=== PATIENT | female | born 1985 | race Caucasian/White ===

== ENCOUNTER → 2023-07-24 | Emergency (ER) | payer SELFPAY ==
[~2023-07-24] MED LIST: FAMOTIDINE 20 MG/2 ML VIAL IV ONE; FOLIC ACID 5 MG/ML VIAL ONE; LORazepam 2 MG/ML VIAL ONE; MULTIVITAMINS 10 ML VIAL (INJ) IV ONE; NA CHLORIDE 0.9% 2,000 ML ONE; ONDANSETRON 4 MG/2 ML VIAL ONE; THIAMINE 200 MG/2 ML INJ ONE
[2023-07-24 04:30] LABS: Absolute Basophils 0.1 K/uL (0-0.5); Absolute Lymphocytes (CBC) 2.2 K/uL (0.7-4.9); Absolute Monocytes 0.8 K/uL (0.1-1.3); Absolute Neutrophil 6.4 K/uL (1.8-8.0); Basophils % 0.5 % (0-1.3); Hematocrit 46.8 % (36.0-45.0); Hemoglobin 15.9 g/dL (12.0-15.0); Lymphocytes % 23.3 % (15.3-44.8); MCH 27.7 pg (27.0-35.0); MCHC 33.9 g/dL (32.0-36.0); MCV 81.8 fL (80-100); MPV 8.7 fL (7.6-11.3); Monocytes % 8.4 % (3.3-12.3); Neutrophils % 67.8 % (41.7-73.7); Platelets 447 thou/uL (152-406); RBC Red Blood Cell Count 5.73 M/uL (3.86-4.86); Red Cell Distribution Width 16.9 % (12.1-15.2)
[2023-07-24 04:47] LABS: Albumin/Globulin Ratio 0.8 (1.1-1.8); Anion Gap 19.2 mEq/L (5.0-15.0); Bilirubin Total 0.9 mg/dL (0.2-1.0); Globulin 4.8 g/dL (2.3-3.5); Potassium 3.2 mEq/L (3.5-5.1); Protein, Total 8.8 g/dL (6.4-8.2)
[2023-07-24 04:57] LABS: Specific Gravity 1.022 (1.005-1.030)
[2023-07-24 04:58] LABS: Specific Gravity 1.022 (1.005-1.030); Sqamous Epithelial <5 /HPF (None Seen); Urine Bacteria None Seen /HPF (<20); Urine Bilirubin NEGATIVE (Negative); Urine Blood 3+ (OVER) (Negative); Urine Clarity Extremely Turbid (Clear); Urine Color Yellow (Yellow); Urine Culture Reflex Order NOT NEEDED; Urine Glucose NEGATIVE (Negative); Urine Ketones 1+ (Negative); Urine Microscopic Reflex YN ORDER UMIC; Urine Mucus 4+ /HPF (None Seen); Urine Nitrite NEGATIVE (Negative); Urine Protein 1+ (Negative); Urine Urobilinogen Normal (Normal); Urine WBC <5 /HPF (<5)
[2023-07-24 05:18] LABS: Barbiturates NEGATIVE (NEGATIVE); Benzodiazepines NEGATIVE (NEGATIVE); Cocaine NEGATIVE (NEGATIVE); METHAMPHETAM NEGATIVE (NEGATIVE); Methadone NEGATIVE (NEGATIVE); Opiates POSITIVE (NEGATIVE); Phencyclidine NEGATIVE (NEGATIVE); THC Cannibis NEGATIVE (NEGATIVE)
--- NOTE | 2023-07-24 05:54 | EDPHYS ---
Physician Documentation [facility] Name: Elenita Jefferson Age: 38 yrs Sex: Female : 1985 Arrival Date: 07/24/2023 Time: 03:46 Bed 11 Private MD: ED Physician Ez Kohler HPI: 07/23 04:04 This 38 yrs old Female presents to ER via Unassigned with complaints of sp4 Nausea/Vomiting. 04:04 38-year-old female with history of alcohol abuse and alcoholism presents with sp4 persistent vomiting for the last 3 days. Patient states she has been drinking heavily last alcoholic drink was just prior to arrival. Patient reports anxiety numbness tingling to bilateral hands. Reports that she is trying to get into a rehab at this time, . 05:50 Patient reports binging on alcohol heavily in the last several days drinking 99 % of sp4 alcohol which is flavored . . History of prior alcoholism currently in the relapse.. 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 Last tetanus immunization: > 10 years ago Hepatitis A vaccine is up to date. - Family history:: not pertinent. - Social history:: Smoking status: Reported history of juuling and/or vaping. Patient uses alcohol, on a daily basis. Patient/guardian denies using street drugs. ROS: 04:04 Constitutional: Negative for fever, chills, and weight loss, sp4 04:04 Constitutional: Negative for fever, chills, and weight loss, positive vomiting positive intoxication positive anxiety. Positive abdominal discomfort 04:04 All other systems are negative, Exam: 04:04 Constitutional: This is a well developed, well nourished patient who is awake, alert, sp4 and moderate distress. There is intoxication that is moderate. unsteady gait Head/Face: Normocephalic, atraumatic. Eyes: Pupils equal round and reactive to light, extra-ocular motions intact. Lids and lashes normal. Conjunctiva and sclera are not injected. Cornea within normal limits. Periorbital areas with no swelling, redness, or edema. ENT: Nares patent. No nasal discharge, no septal abnormalities noted. Tympanic membranes are normal and external auditory canals are clear. Oropharynx with no redness, swelling, or masses, exudates, or evidence of obstruction, uvula midline. Mucous membranes moist. Neck: Trachea midline, no thyromegaly or masses palpated, and no cervical lymphadenopathy. Supple, full range of motion without nuchal rigidity, or vertebral point tenderness. Chest/axilla: Normal chest wall appearance and motion. Nontender with no deformity. No lesions are appreciated. Cardiovascular: Regular rate and rhythm with a normal S1 and S2. No gallops, murmurs, or rubs. Normal PMI, no JVD. No pulse deficits. Respiratory: Lungs have equal breath sounds bilaterally, clear to auscultation and percussion. No rales, rhonchi or wheezes noted. No increased work of breathing, no retractions or nasal flaring. Abdomen/GI: Soft, with normal bowel sounds. No distension or tympany. No guarding or rebound. No evidence of tenderness throughout. Back: No spinal tenderness. No costovertebral tenderness. Skin: Warm, dry with normal turgor. Normal color with no rashes, no lesions, and no evidence of cellulitis. MS/ Extremity: Pulses equal, no cyanosis. Neurovascular intact. Full, normal range of motion. Neuro: Awake and alert, GCS 15, oriented to person, place, time, and situation. Cranial nerves II-XII grossly intact. Motor strength 5/5 in all extremities. Sensory grossly intact. Psych: Awake, alert, with orientation to person, place and time. Behavior, mood, and affect are within normal limits Vital Signs: 03:55 BP 141 / 110; Pulse 103; Resp 18; Temp 98.3(O); Pulse Ox 100% on R/A; Weight 63.5 kg; pf1 Height 5 ft. 2 in. ; Pain 0/10; 04:30 BP 154 / 106; Pulse 97; Resp 20; Pulse Ox 99% on R/A; Pain 0/10; pf1 05:30 BP 145 / 87; Pulse 93; Resp 16; Temp 97.9; Pulse Ox 98% on R/A; Pain 0/10; pf1 03:55 Body Mass Index 25.61 (63.50 kg, 157.48 cm) pf1 03:55 Pain Scale: Adult pf1 04:30 Pain Scale: Adult pf1 05:30 Pain Scale: Adult pf1 [place] Coma Score: 04:04 Eye Response: spontaneous(4). Motor Response: obeys commands(6). Verbal Response: sp4 oriented(5). Total: 15. MDM: 03:54 Patient medically screened. sp4 05:50 Differential diagnosis: Nonspecific abd pain, gastritis, pancreatitis, gastroenteritis. sp4 Data reviewed: vital signs, nurses notes, lab test result(s). ED course: Patient has signs of acute alcoholic gastritis acute alcoholic intoxication. Also anxiety attack related to alcohol abuse. Patient is improved significantly after Ativan and IV hydration. Will prescribe ondansetron and Pepcid. Patient states she will be going to rehab today. Patient was definitely recommended to continue with plans for detoxification, rehabilitation, also joining alcoholic Anonymous. . 07/23 03:54 Order name: CBC with Diff; Complete Time: 05:23 [facility] 07/23 03:54 Order name: CMP; Complete Time: 05:23 sp4 07/23 03:54 Order name: Lipase; Complete Time: 05:23 4 07/23 03:54 Order name: Test, Urine; Complete Time: 05:23 4 07/23 03:54 Order name: Urinalysis w/ reflexes; Complete Time: 05:23 4 07/23 04:02 Order name: Alcohol Level; Complete Time: 05:23 4 07/23 04:03 Order name: Urine Drug Screen; Complete Time: 05:23 4 07/23 05:29 Interpretation: METH NEGATIVE. sp4 07/23 03:54 Order name: IV Saline Lock; Complete Time: 04:23 4 07/23 03:54 Order name: Labs collected and sent; Complete Time: 04:23 sp4 Administered Medications: 04:45 Drug: Banana Bag - (Multivitamin IV 1 amp, NS 0.9% IV 1000 ml, Thiamine IV 100 mg, pf1 foLIC Acid IVPB 1 mg) IV at calculated rate once Route: IV; Rate: calculated rate; Site: left forearm; 05:40 Follow up: Response: No adverse reaction; Marked relief of symptoms; IV Status: pf1 Completed infusion; IV Intake: 1000ml 04:45 Drug: NS 0.9% IV 1000 ml IV at 125 ml/hr continuous Route: IV; Rate: 125 ml/hr; Site: pf1 left forearm; 06:00 Follow up: Response: No adverse reaction; Marked relief of symptoms; IV Status: pf1 Completed infusion; IV Intake: 300ml 04:45 Drug: Ativan IVP 2 mg IVP once Route: IVP; Site: left forearm; pf1 05:40 Follow up: Response: No adverse reaction; Marked relief of symptoms pf1 04:45 Drug: Ondansetron IVP 8 mg IVP once; over 2 minutes Route: IVP; Site: left forearm; pf1 05:40 Follow up: Response: No adverse reaction; Marked relief of symptoms; Vomiting decreased pf1 04:45 Drug: Famotidine IVP 20 mg IVP once; dilute with 10 mL 0.9% NaCl; give over 2 minutes pf1 Route: IVP; Site: left forearm; 05:40 Follow up: Response: No adverse reaction; Marked relief of symptoms pf1 Disposition Summary: 07/24/23 05:53 Discharge Ordered Notes: Continue with your plans for rehabilitation Location: Home sp4 Problem: new sp4 Symptoms: have improved sp4 Condition: Stable sp4 Diagnosis - Anxiety disorder, unspecified sp4 - Alcohol abuse with intoxication sp4 - Acute alcoholic gastritis with intractable vomiting, acute alcoholic hepatitis. sp4 Followup: sp4 - With: Private Physician - When: 7 - 10 days - Reason: Recheck today's complaints Discharge Instructions: - Discharge Summary Sheet sp4 - Alcoholic Hepatitis sp4 Forms: - Patient Portal Instructions sp4 Prescriptions: - Pepcid 20 mg Oral tablet - take 1 tablet ORAL route every 12 hours for 30 days; 60 tablet; Refills: 0, sp4 Product Selection Permitted - ondansetron 8 mg Oral Tablet,disintegrating - take 1 tablet ORAL route every 8 hours As needed nausea; 30 tablet; Refills: 0, sp4 Product Selection Permitted Signatures: Dispatcher [employer] Tess Noguera RN RN pf1 Ez Kohler MD MD sp4
--- NOTE | 2023-07-24 05:54 | ER ---
Nurse's Notes [facility] Name: Elenita Jefferson Age: 38 yrs Sex: Female : 1985 Arrival Date: 07/24/2023 Time: 03:46 Bed 11 Private MD: Diagnosis: Anxiety disorder, unspecified;Alcohol abuse with intoxication;Acute alcoholic gastritis with intractable vomiting, acute alcoholic hepatitis. Presentation: 07/23 03:55 Chief complaint: Patient states: nausea and vomiting,onset 3 days, worse since 0230. pf1 Patient stated was in rehab for alcohol abuse, has been drinking a lot of alcohol since last night and is going to follow up with rehab again today. 03:55 Coronavirus screen: Vaccine status: Patient reports being unvaccinated. Client denies pf1 travel out of the [place] in the last 14 days. Client presents with at least one sign or symptom that may indicate coronavirus-19. Standard/surgical mask placed on the client. Ebola Screen: Patient negative for fever greater than or equal to 101.5 degrees Fahrenheit, and additional compatible Ebola Virus Disease symptoms. Initial Sepsis Screen: Does the patient meet any 2 criteria? HR > 90 bpm. No. Patient's initial sepsis screen is negative. Does the patient have a suspected source of infection? No. Patient's initial sepsis screen is negative. Risk Assessment: Do you want to hurt yourself or someone else? Patient reports no desire to harm self or others. Onset of symptoms was July 21, 2023. 03:55 Method Of Arrival: Wheelchair pf1 03:55 Acuity: RAULITO 3 pf1 03:55 Onset of symptoms was July 24, 2023 at 02:30. pf1 Triage Assessment: 03:55 General: Appears in no apparent distress. uncomfortable, well groomed, well developed, pf1 Behavior is cooperative, appropriate for age, anxious, quiet. 03:55 Pain: Denies pain. GI: Reports nausea, vomiting. 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 Last tetanus immunization: > 10 years ago Hepatitis A vaccine is up to date. - Family history:: not pertinent. - Social history:: Smoking status: Reported history of juuling and/or vaping. Patient uses alcohol, on a daily basis. Patient/guardian denies using street drugs. Screenin:55 [facility] ED Fall Risk Assessment (Adult) History of falling in the last 3 months, pf1 including since admission No falls in past 3 months (0 pts) Confusion or Disorientation No (0 pts) Intoxicated or Sedated No (0 pts) Impaired Gait No (0 pts) Mobility Assist Device Used No (0 pt) Altered Elimination No (0 pt) Score/Fall Risk Level 0 - 2 = Low Risk Oriented to surroundings, Maintained a safe environment, Educated pt \T\ family on fall prevention, incl call for assistance when getting out of bed, Assessed \T\ reinforced patient's understanding of fall precautions, Provided non-skid footwear, Hourly rounding (assess needs \T\ fall precautionary measures) done, Used ambulatory aids as needed (educated on \T\ assisted with), Used gait belt as appropriate. 03:55 Abuse screen: Denies threats or abuse. Nutritional screening: No deficits noted. pf1 Tuberculosis screening: No symptoms or risk factors identified. Assessment: 03:55 General: Appears in no apparent distress. uncomfortable, well groomed, well developed, pf1 Behavior is cooperative, anxious. 03:55 Pain: Denies pain. Neuro: No deficits noted. Level of Consciousness is awake, alert, pf1 obeys commands, Oriented to person, place, time, situation. Cardiovascular: No deficits noted. Capillary refill < 3 seconds Patient's skin is warm and dry. Respiratory: No deficits noted. Airway is patent Respiratory effort is even, unlabored, Respiratory pattern is regular, symmetrical, Breath sounds are clear bilaterally. GI: Abdomen is flat, non-distended, Bowel sounds present X 4 quads. Reports nausea, vomiting, since 3 days, worse last night. : No deficits noted. No signs and/or symptoms were reported regarding the genitourinary system. EENT: No deficits noted. No signs and/or symptoms were reported regarding the EENT system. Derm: No deficits noted. No signs and/or symptoms reported regarding the dermatologic system. Musculoskeletal: No deficits noted. No signs and/or symptoms reported regarding the musculoskeletal system. 05:00 Reassessment: Patient appears in no apparent distress at this time. Patient and/or pf1 family updated on plan of care and expected duration. Pain level reassessed. Patient is alert, oriented x 3, equal unlabored respirations, skin warm/dry/pink. Patient states symptoms have improved. 06:00 Reassessment: Patient appears in no apparent distress at this time. Patient and/or pf1 family updated on plan of care and expected duration. Pain level reassessed. Patient is alert, oriented x 3, equal unlabored respirations, skin warm/dry/pink. Patient states feeling better. Patient states symptoms have improved. Vital Signs: 03:55 BP 141 / 110; Pulse 103; Resp 18; Temp 98.3(O); Pulse Ox 100% on R/A; Weight 63.5 kg; pf1 Height 5 ft. 2 in. ; Pain 0/10; 04:30 BP 154 / 106; Pulse 97; Resp 20; Pulse Ox 99% on R/A; Pain 0/10; pf1 05:30 BP 145 / 87; Pulse 93; Resp 16; Temp 97.9; Pulse Ox 98% on R/A; Pain 0/10; pf1 03:55 Body Mass Index 25.61 (63.50 kg, 157.48 cm) pf1 03:55 Pain Scale: Adult pf1 04:30 Pain Scale: Adult pf1 05:30 Pain Scale: Adult pf1 [place] Coma Score: 04:04 Eye Response: spontaneous(4). Motor Response: obeys commands(6). Verbal Response: sp4 oriented(5). Total: 15. ED Course: 03:48 Patient arrived in ED. [id number] 03:54 Ez Kohler MD is Attending Physician. sp4 03:55 Arm band placed on left wrist. pf1 03:55 Patient has correct armband on for positive identification. Placed in gown. Bed in low pf1 position. Call light in reach. Side rails up X 1. 04:20 Inserted saline lock: 20 gauge in left forearm, using aseptic technique. Blood pf1 collected. 04:20 Initial lab(s) drawn, by me, sent to lab. pf1 04:48 Urine collected: clean catch specimen. oe 04:50 Urine Drug Screen Sent. oe 04:50 Urinalysis w/ reflexes Sent. oe 04:50 Test, Urine Sent. oe 04:57 Warm blanket given. oe 06:00 No provider procedures requiring assistance completed. pf1 06:00 IV discontinued, intact, bleeding controlled, No redness/swelling at site. Pressure pf1 dressing applied. 06:00 Provided Education on: prescriptions. pf1 08:00 Triage completed. pf1 Administered Medications: 04:45 Drug: Banana Bag - (Multivitamin IV 1 amp, NS 0.9% IV 1000 ml, Thiamine IV 100 mg, pf1 foLIC Acid IVPB 1 mg) IV at calculated rate once Route: IV; Rate: calculated rate; Site: left forearm; 05:40 Follow up: Response: No adverse reaction; Marked relief of symptoms; IV Status: pf1 Completed infusion; IV Intake: 1000ml 04:45 Drug: NS 0.9% IV 1000 ml IV at 125 ml/hr continuous Route: IV; Rate: 125 ml/hr; Site: pf1 left forearm; 06:00 Follow up: Response: No adverse reaction; Marked relief of symptoms; IV Status: pf1 Completed infusion; IV Intake: 300ml 04:45 Drug: Ativan IVP 2 mg IVP once Route: IVP; Site: left forearm; pf1 05:40 Follow up: Response: No adverse reaction; Marked relief of symptoms pf1 04:45 Drug: Ondansetron IVP 8 mg IVP once; over 2 minutes Route: IVP; Site: left forearm; pf1 05:40 Follow up: Response: No adverse reaction; Marked relief of symptoms; Vomiting decreased pf1 04:45 Drug: Famotidine IVP 20 mg IVP once; dilute with 10 mL 0.9% NaCl; give over 2 minutes pf1 Route: IVP; Site: left forearm; 05:40 Follow up: Response: No adverse reaction; Marked relief of symptoms pf1 Medication: 06:00 VIS not applicable for this client. pf1 Intake: 05:40 IV: 1000ml; Total: 1000ml. pf1 06:00 IV: 300ml; Total: 1300ml. pf1 Outcome: 05:53 Discharge ordered by MD. bauman 06:00 Discharged to home ambulatory, with family, pf1 06:00 Condition: improved pf1 06:00 Discharge instructions given to patient, family, Instructed on discharge instructions, follow up and referral plans. Demonstrated understanding of instructions, follow-up care, medications, Prescriptions given X 2, 06:00 Patient left the ED. pf1 Signatures: Aj Alejandro Jennifer [email or web address] Tess Godfrey RN RN pf1 Ez Kohler MD MD sp4 Corrections: (The following items were deleted from the chart) 07:56 06:12 Patient left the ED. pf1 pf1
== END ==
LOC: ER 03:46
DX: K70.10 Alcoholic hepatitis without ascites (principal); K29.20 Alcoholic gastritis without bleeding; F10.229 Alcohol dependence with intoxication, unspecified; F41.9 Anxiety disorder, unspecified; Z28.310 Unvaccinated for COVID-19
CPT/HCPCS: 36415; 80053; 80307; 81001; 81025; 82077; 83690; 85025; 96365; 96375; 99284; J2405; J3411; J7030